=== PATIENT | male | born 1975 | race Caucasian/White ===

== ENCOUNTER 2022-08-04 15:43 | Emergency (ER) | payer OTHER, SELFPAY ==
--- NOTE | 2022-08-04 15:45 | DI.CT_ITS ---
Exam(s) CT ABDOMEN PELVIS WO EXAM: CT ABDOMEN PELVIS WO CLINICAL HISTORY: left abd pain, r/o stone vs divertic. TECHNIQUE: Imaging Protocol: Axial computed tomography images with coronal and sagittal reformatted images were created and reviewed. Oral: no COMPARISON: No exams were available for comparison FINDINGS: ABDOMEN: Lung Bases: Normal where visualized. Liver: Normal density. No measurable mass. Gallbladder and biliary tract: No radiodense calculus or dilation. Pancreas: Normal density, no abnormal calcifications or inflammatory process. Spleen: Normal. Kidneys: Normal size, contour and axis. No radiodense stones or obstructive uropathy. No masses seen. Adrenal glands: No masses seen. Lymph nodes: Within normal limits. Abdominal Aorta: Abdominal portion non-dilated. PELVIS: Bladder: Symmetric distention, no gross wall thickening. Bowel: Large quantity of stool from ascending through mid descending colon. Distal colon free of stoo l. Fecalization of distal small bowel. No obstruction or bowel wall thickening. Peritoneal cavity: No ascites, collection or mesenteric inflammatory response. Reproductive organs: Within normal limits. Bones: Within normal limits. IMPRESSION: Large stephanie quantity of stool, otherwise unremarkable CT scan of the abdomen and pelvis. Findings called to Dr. Lepe of the emergency department RADIATION DOSE DELIVERED: 901.47mGy.cm Total DLP DATA REPOSITORY: All CT scans at this facility are submitted to the National Radiology Data Registry (NRDR) Dose Index Registry (DIR) with the [employer] (A[employer]). RADIATION OPTIMIZATION: All CT scans at this facility use at least one of these dose optimization te chniques: automated exposure control; mA and/or kV adjustment per patient size (includes targeted exa ms where dose is matched to clinical indication); or iterative reconstruction.
[2022-08-04 15:47] VITALS: BP 150/100; PULSE 82; RESP 17; TEMP 36.9; O2SAT 98
--- NOTE | 2022-08-04 15:53 | ED.GENADUL_ITS ---
Discharge Plan Disposition Patient Disposition: Home Condition: Good Discharge Details Clinical Impression: Left sided abdominal pain Primary Care Provider: Arlene,Local ED Provider: Yoni Lepe Home Meds and New Rx's Prescriptions: No Action No Known Home Meds Discharge Instructions Instructions: Abdominal Pain (ED) Additional Instructions: At this time your laboratory work-up, your CAT scan, and your urinalysis show no evidence of significant abnormality. Your CAT scan does show a large amount of stool that is present, which may have been a component of your symptoms. On your reassessment you thankfully show no evidence of a significant abdominal abnormality indicative of an acute surgical etiology. As we discussed together, please stick with a bland diet this evening, drink plenty of fluids. Take the Zofran that you were given as needed for nausea. As we discussed, there is always a chance that this could just be very early for the potential cause of your pain, and so if your pain continues or worsens please return for reassessment. If you notice any worsening of your symptoms, or any new symptoms such as vomiting, diarrhea, fever, chills, shortness of breath, chest pain, numbness, weakness, or fainting , please return immediately to the emergency department for reevaluation. Please follow up with your primary care provider as soon as possible for reassessment and reevaluation. As always, it was a pleasure participating in your medical care today. Discharge Data Discharge Date/Time-TO BE ENTERED AT DEPARTURE: 08/04/22 18:14 Medical Decision Making 47-year-old male with no past medical history no surgical history, who presents today for left-sided abdominal pain. [place] mild to moderate left mid abdominal pain. Pain was made worse with movement, but gradually worsened with time as well. Pain is somewhat severe now. He denies any tearing or ripping sensation. He states that the symptoms of the pain are constant and sharp. It was not changed with bowel movements or urinary movements. No radiation to the mid or right lower quadrant. No epigastric discomfort. No history of kidney stones personally, no history of diverticulitis. No other complaints at this time. Exam demonstrates left mid abdominal tenderness. No left lower, midline or right-sided abdominal pain. Minimal left CVA tenderness. Pain is sharp in nature. Symptoms are concerning for diverticulitis versus kidney stone. Symptoms appear inconsistent with AAA. Will give morphine, check the patient's urine, get a CT scan, monitor closely and reassess. On reassessment patient is feeling much better. Pain is completely resolved. Patient feels well and is requesting discharge home. CT imaging shows evidence of notable amount of stool but no other significant abnormalities. Patient stable for discharge. Repeat exam shows no evidence of an acute surgical abdomen. Discussed red flags for which to return. I have extensively reviewed the treatment plan and discharge instructions with the patient. I have addressed all patient concerns at this time. The patient was made aware of what symptoms to monitor for that would warrant a return to the emergency department. Discussed the plan with the patient, they demonstrate verbal understanding and agreement with our assessment and plan at this time. The documentation in this chart was dictated using [employer] dictation software. Please excuse any dictation errors. FINDINGS: ABDOMEN: Lung Bases: Normal where visualized. Liver: Normal density. No measurable mass. Gallbladder and biliary tract: No radiodense calculus or dilation. Pancreas: Normal density, no abnormal calcifications or inflammatory process. Spleen: Normal. Kidneys: Normal size, contour and axis. No radiodense stones or obstructive uropathy. No masses seen. Adrenal glands: No masses seen. Lymph nodes: Within normal limits. Abdominal Aorta: Abdominal portion non-dilated. PELVIS: Bladder: Symmetric distention, no gross wall thickening. Bowel: Large quantity of stool from ascending through mid descending colon. Distal colon free of stool. Fecalization of distal small bowel. No obstruction or bowel wall thickening. Peritoneal cavity: No ascites, collection or mesenteric inflammatory response. Reproductive organs: Within normal limits. Bones: Within normal limits. IMPRESSION: Large stephanie quantity of stool, otherwise unremarkable CT scan of the abdomen and pelvis. Findings called to Dr. Lepe of the emergency department HPI General Date/Time Provider Initiated Documentation: 08/04/22 15:44 . HPI Narrative: 47-year-old male with no past medical history no surgical history, who presents today for left-sided abdominal pain. [place] mild to moderate left mid abdominal pain. Pain was made worse with movement, but gradually worsened with time as well. Pain is somewhat severe now. He denies any tearing or ripping sensation. He states that the symptoms of the pain are constant and sharp. It was not changed with bowel movements or urinary movements. No radiation to the mid or right lower quadrant. No epigastric discomfort. No history of kidney stones personally, no history of diverticulitis. No other complaints at this time. Related Data Home Medications Medication Instructions Recorded Confirmed Unknown [No Known Home Meds] 08/04/22 08/04/22 Allergies Allergy/AdvReac Type Severity Reaction Status Date / Time No Known Allergies Allergy Unverified 08/04/22 15:52 General Stated Complaint: Abd Prob LAWSON: 3 Review of Systems All systems reviewed & are unremarkable except as noted in HPI and below PFSH All Active Problems (Updated 08/04/22 @ 17:49 by Yoni Lepe DO) Left sided abdominal pain (Acute) Social History Smoking/Tobacco Use Status: Never Smoking risk assessment performed?: Yes Alcohol Intake: current Alcohol Intake frequency: holidays/special occasions only Alcohol type: wine Drug use: Never Substance use type: does not use Do you feel safe at home: Yes Do you feel safe in your relationship?: Yes Exam Narrative Exam Narrative: 1.Const: Well-nourished, Well-developed, appearing stated age 2.Eyes: PERRL, no conjunctival injection, and symmetrical lids. 3.ENT: Atraumatic external nose and ears. Moist MM. Neck: Symmetric, trachea midline, No thyromegaly. 4.CVS: +S1/S2, No murmurs or gallops. Peripheral pulses 2+ and equal in all extremities. Brisk capillary refill in all extremities. 5.RESP: Unlabored respiratory effort. Clear to auscultation bilaterally. No wheezes rales or rhonchi 6.GI: Soft, nondistended, no guarding. No rebound. No significant left CVA tenderness. Mild to moderate reproducible tenderness in the left mid abdominal quadrant. No midline or right lower quadrant abdominal tenderness. Negative Rovsing sign. No rebound. No genital pain or tenderness. No scrotal or testicular pain. 7.MSK: Normocephalic/Atraumatic, Extremities w/o deformity or ttp No cyanosis or clubbing, Normal movement of all extremities 8.Skin: Warm, Dry. No rashes or lesions. 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 Sensation grossly intact, no focal neurologic deficits. 10.Psych: (AAO) x3. Appropriate mood and affect Course Vital Signs Vital signs: Vital Signs Temperature 36.9 C 08/04/22 15:47 Pulse 82 08/04/22 15:47 Respiratory Rate 17 08/04/22 15:47 Blood Pressure 150/100 H 08/04/22 15:47 Pulse Oximetry 98 08/04/22 15:47 Temperature 36.9 C 08/04/22 15:47 Temperature Source Temporal Artery Scan 08/04/22 15:47 Pulse 82 08/04/22 15:47 Respiratory Rate 17 08/04/22 15:47 Respiratory Effort 08/04/22 15:50 Blood Pressure 150/100 H 08/04/22 15:47 Blood Pressure Position Sitting 08/04/22 15:47 Pulse Oximetry 98 08/04/22 15:47 Oxygen Delivery Method Room Air 08/04/22 15:47 Oxygen Flow Rate 0 08/04/22 15:47 Pain Level 8 08/04/22 15:47
[2022-08-04] MEDS: Normal Saline 1,000 ML 1000 ML IV (16:07)
[2022-08-04] MEDS: Ondansetron 4 MG/2 ML VIAL IVP (16:08)
[2022-08-04] MEDS: MORPHine 4 MG/ML SYR IVP (16:08)
[2022-08-04 16:10] LABS: Abs Immature Grans 0.01 10^3/uL (0.0-0.06); Absolute Basophil Count 0.03 10^3/uL (0.0-0.2); Absolute Eosinophil Count 0.04 10^3/uL (0.0-0.7); Absolute Lymphocyte Count 2.12 10^3/uL (1.2-3.4); Absolute Neutrophil Count 5.01 10^3/uL (1.2-6.7); Basophils % 0.4; Eosinophils % 0.5; HCT 46.3 % (40.0-50.0); HGB 15.2 g/dL (13.5-17.5); Immature Grans % 0.1; Lymphocytes % 26.8; MCH 29.8 pg (27.0-33.0); MCHC 32.8 % (32.0-36.0); MCV 91 fL (80-95); MPV 10.4 fL (8.0-11.0); Monocytes % 8.8; Neutrophils % 63.4; Platelet Count 222 10^3/uL (130-400); RDW 12.1 % (11.8-14.1); RDW-SD 40.8 fL; WBC 7.91 10^3/uL (4.4-10.8)
[2022-08-04 16:21] LABS: ALT 20 U/L (16-63); AST 22 U/L (15-37); Albumin 4.7 g/dL (3.4-5.0); Alkaline Phosphatase 84 U/L (46-116); Anion Gap 7.7 mmol/L (3-11); BUN 16 mg/dL (7-18); CO2 28.3 mmol/L (21.0-32.0); Calcium 9.3 mg/dL (8.5-10.1); Chloride 104 mmol/L (98-107); Glucose 93 mg/dL (74-106); Potassium 4.1 mmol/L (3.5-5.1); Sodium 140 mmol/L (136-145); Total Protein 7.9 g/dL (6.4-8.2)
[2022-08-04 16:29] LABS: Lipase 72 U/L (73-393)
[2022-08-04 17:08] LABS: Bilirubin Small (Negative); Blood Trace-intact (Negative); Clarity Clear (Clear); Glucose Negative (Negative); Ketones 40 mg/dL (Negative); Leukocyte Esterase Negative (Negative); Nitrite Negative (Negative); Specific Gravity >= 1.030 (1.005-1.025); Urobilinogen 0.2 EU/dL (Up TO 0.2)
[2022-08-04 17:19] LABS: Bacteria Negative HPF (Negative); C & S Indicated? No; Casts Negative LPF (Negative); Crystals Negative HPF (Negative); Epithelial Cells Rare HPF (Negative); Mucus Negative (Negative); RBC 0-2 HPF (0-2); WBC 0-2 HPF (0-5)
[2022-08-04] MEDS: Ondansetron O.D.T. 4 MG TABEF, 3 TABS/BTL PO (18:02)
[2022-08-04 18:05] VITALS: BP 121/74; PULSE 81; RESP 18; O2SAT 98
== END 2022-08-04 18:14 | disposition home or self-care (01) ==
PROVIDERS: Emergency Provider Student in an Organized Health Care Education/Training Program
DX: R10.9 Unspecified abdominal pain (principal)
CPT/HCPCS: 80053; 83690; 96361; 96374; 96375; 99284; 74176; 81003; 81015; 85025; J2270; J2405